=== PATIENT | female | born 1930 | race Caucasian/White ===

== ENCOUNTER 2016-04-18 19:12 | Inpatient (IN) | payer MEDICARE, OTHER ==
[~2016-04-18] VITALS: Ht 154.9 cm; Wt 52.8 kg
[~2016-04-18 19:12] MED LIST: ADV250INH IH; ALBU18HF INH; ASPI-973 PO; ATOR20TA PO; CALC500T9 PO; CHOL200025 PO; DICL75TA6 PO; FUR20 PO; FURO40TA4 PO; GUAI10LI PO; LOSA100T29 PO; MULT1TAB59 PO; OMEG-38 PO; OMEP40CA36 PO; POLY17PO6 PO; POTA10CA42 PO; VIT1CAPS8 PO
[2016-04-18] MEDS ORDERED: 0.9% Sodium Chloride 1,000 ML IV ONE (19:29)
--- NOTE | 2016-04-18 19:29 | ED.REPORT ---
HPI-Abd Pain F 40 and Over Date of Service Apr 18, 2016 ED Provider: Kyle Davis Patient is an 85 year old female who presents to the ED via EMS complaining of abdominal pain onset 2 days ago. Associated symptoms include dark vomit today. She denies diarrhea, fever, or any other symptoms. Patient is FULL CODE Nursing Notes Stated Complaint: ABDOMINAL PAIN,VOMITING Chief Complaint: Female Abdominal Pain Nursing Notes Reviewed: Yes Allergies: Coded Allergies: No Known Drug Allergies (Verified Allergy, Unknown, 08/03/15) Scheduled Aspirin (Aspirin) 81 Mg Tablet 81 MG PO DAILY Atorvastatin (Lipitor) 20 Mg Tablet 20 MG PO DAILY Cholecalciferol (Vitamin D3) (Vitamin D3) 2,000 Unit Tablet 4,000 UNIT PO DAILY Diclofenac ER (Diclofenac ER) 75 Mg Tablet 75 MG PO BID Fluticasone/Salmeterol (Advair 250-50 Diskus) 60 Puff/Inh Disk 1 PUFF IH BID Furosemide (Furosemide) 40 Mg Tablet 40 MG PO DAILYWM Furosemide (Furosemide) 20 Mg Tab 20 MG PO at lunch Losartan Potassium (Losartan Potassium) 100 Mg Tablet 150 MG PO DAILY Multivitamin/Iron/Folic Acid (Cerovite Advanced Form Tab) 1 Each Tablet 1 EACH PO DAILY [place]-3/Dha/Epa/Fish Oil (Fish Oil 1,000 mg Softgel) 1 Each Capsule 1 EACH PO BID Omeprazole (Omeprazole) 40 Mg Capsule.dr 40 MG PO DAILY Polyethylene Glycol 3350 (Miralax) 17 Gm Powd.pack 17 GM PO DAILY Potassium Chloride (Potassium Chloride) 10 Meq Capsule.er 10 MEQ PO DAILY TAKE WITH FOOD Vit C/Vit E/Lutein/Min/[place]-3 (Ocuvite Softgel) 1 Each Capsule 1 EACH PO DAILY Scheduled PRN Albuterol Sulfate (Ventolin HFA Inhaler) 200 Puff/18 Gm Inhaler 1 PUFF INH Q4 PRN PRN For Wheezing Calcium Carbonate (Tums) 500 Mg Tab.chew 1,000 MG PO BID PRN PRN For Dyspepsia or Heartburn Guaifenesin/Codeine Phosphate (Guaifenesin-Codeine Syrup) 10 Ml Liquid 10 ML PO Q4H PRN PRN For Pain General Time Seen by MD: 19:28 Chief Complaint Abdominal pain Hx Obtained From: Patient, EMS Arrived By: Ambulance Sudden in Onset?: Yes Onset Occurred: 2 days ago Symptom Duration: Since onset Past Medical History Past Medical History Arthritis Reports: Asthma, Hypertension Past Surgical History Ovarian cyst removal abdominoplasty Reports: Cataract surgery Smoking History Former Smoker Social History pt lives in an assisted living facility in [place]. pt is FULL CODE Ambulatory Status Independent Review of Systems Constitutional: Denies: Fever GI: Reports: Abdominal pain, Vomiting (Dark), Denies: Diarrhea Complete sys rev & neg: except as marked. Physical Exam Vital Signs Vital Signs (First) Date Time Temp Pulse Resp B/P Pulse Ox O2 Delivery O2 Flow Rate FiO2 04/18/16 19:32 36.4 112 18 120/69 93 Room Air 04/18/16 21:47 2 Initial VS: Reviewed Head / Eyes: Atraumatic, Normocephalic Skin: Warm, Dry Neurologic: Alert, Oriented, Nonfocal Psychiatric: Mood/affect normal, Behavior normal, Normal thought content General/Constitutional: Awake, Alert, No acute distress, Well developed Respiratory / Chest: Atraumatic, Breath sounds NL, Breath sounds = bilat, No respiratory distress Cardiovascular: Heart rate NL, Regular rhythm Heart Sounds / Murmur: Positive: Systolic murmur present.. (III/) 3/6 systolic murmur on L sternal border Abdomen: BS normoactive L and central abdominal tenderness. Back: Atraumatic Interpretation & Diagnostics Lab Results Interpretation Result Diagram: 04/18/16195304/18/[id number] Test 04/18/16 19:54 White Blood Count 12.1th/mm3 (3.8-10.1) Red Blood Count 4.40mil/mm3 (3.90-5.20) Hemoglobin 12.9g/dL (12.0-15.6) Hematocrit 39.7% (35.0-46.0) Mean Corpuscular Volume 90.2fL (81-100) Mean Corpuscular Hemoglobin 29.3pg (27.0-35.0) Mean Corpuscular Hemoglobin Concent 32.5% (32.0-37.0) Red Cell Distribution Width 15.5% (12.3-15.4) Platelet Count 310bil/L (150-400) Neutrophils (%) (Auto) 82.2% (40-74) Lymphocytes (%) (Auto) 11.9% (14-46) Monocytes (%) (Auto) 5.5% (4-12) Eosinophils (%) (Auto) 0.1% (0-5) Basophils (%) (Auto) 0.2% (0-3) Sodium Level 140mEq/L (134-144) Potassium Level 4.2mEq/L (3.5-5.2) Chloride Level 95mEq/L (97-108) Carbon Dioxide Level 30mmol/L (18-29) Blood Urea Nitrogen 44mg/dL (8-27) Creatinine 1.06mg/dL (0.57-1.00) Estimat Glomerular Filtration Rate 70mL/min (>59) Glucose Level 188mg/dL (60-99) Calcium Level 10.0mg/dL (8.5-10.1) Magnesium Level 1.8mg/dL (1.6-2.6) Total Bilirubin 0.5mg/dL (0.0-1.2) Aspartate Amino Transf (AST/SGOT) 20U/L (0-50) Alanine Aminotransferase (ALT/SGPT) 14U/L (0-32) Alkaline Phosphatase 68U/L (25-165) Total Protein 7.3g/dL (6.4-8.4) Albumin 3.8g/dL (3.4-5.0) Lipase 13U/L (13-60) Hold [place] Top Tube Received (Received) CT Abd / Pelvis Interpretation IMPRESSION: 1. Gastric volvulus as described above. The extent of distal gastric dilatation is increased when compared with the prior study dated 09/07/15. 2. Findings most consistent with small bowel obstruction with transition in the midportion of the jejunum located in the left lower quadrant as described above. Although no focal mass lesion is visualized to explain obstruction, diffuse mucosal thickening is present within the transition point. This may be associated with neoplasm, ischemia, or inflammation. These findings were discussed with Dr. Del Real, resident physician, at 9:20 PM on 04/18/16. 3. Increase in the size of the mesenteric mass when compared with the study dated 09/07/15. Dictated by: Alice Washington M.D. on 04/18/2016 at 21:23 Approved by: Alice Washington M.D. on 04/18/2016 at 21:23 Study type: Abdominal CT IV contrast Interpretation / Wet Read by: Interpret - Radiologist Re-Eval/Medical Decision Med Decision/Clinical Course Previously known gastric abnormality, pain and tenderness in lower abdomen. Imaging shows SBO. Pt appears to be tolerating well, will admit for NPO and IV fluids. Re-Evaluation/Progress : Time of Eval: 21:24 )( Re-Eval Abdomen: Tenderness Re-Evaluation/Progress Note: Rechecked patient and discussed imaging results. Discussed need for admission. Patient reports she has had similar symptoms previously. She is not passing gas normally. Her last BM was this afternoon. Consultation #1: Referral / Consult Name: Daquan Cuenca MD Consulted With: Surgeon Call Returned at: 21:29 Note: Discussed patient's case. Agrees to consult. Consultation #2: Referral / Consult Name: Stevie Velasquez MD Consulted With: Hospitalist Call Returned at: 21:50 Test Borer Helper: Will see patient, Agrees with eval, Agrees with plan, Accepts admit Note: Discussed patient's case accepts admit Counseled Regarding: Diagnosis, Lab results, Need for admission Discharge & Departure Primary Impression: Small bowel obstruction Disposition: ADMITTED TO HOSPITAL Referrals: Fay Botello MD (PCP) Scribe Attestation Portions of this note were transcribed by Jeanine Chiu. I, Dr. Davis personally performed the history, physical exam and medical decision-making; I reviewed and confirmed the accuracy of the information in the transcribed note. Signed by: Jeanine Chiu 04/18/16, [id number] copies to: Fay Botello MD, Donald L MD Apr 18, 2016 19:29 JEANINE CHIU Apr 18, 2016 19:35
[2016-04-18] MEDS ORDERED: Ondansetron 2 mg/mL 2 mL Inj IVPUSH PRN (19:30)
[2016-04-18 19:32] VITALS: BP 120/69; PULSE 112; RESP 18; O2SAT 93
[2016-04-18 20:02] LABS: BASOPHILS % (AUTO) 0.2 % (0-3); EOSINOPHILS % (AUTO) 0.1 % (0-5); MONOCYTES % (AUTO) 5.5 % (4-12); Mean Corpuscular Hemoglobin 29.3 pg (27.0-35.0); Mean Corpuscular Volume 90.2 fL (81-100); NEUTROPHILS % (AUTO) 82.2 % (40-74); Platelet Count 310 bil/L (150-400)
[2016-04-18] MEDS: HYDROmorphone 0.5 mg/0.5 mL iSecure Syringe IVPUSH PRN ×2 (20:03→23:32)
[2016-04-18 20:35] LABS: Magnesium 1.8 mg/dL (1.6-2.6)
--- NOTE | 2016-04-18 21:25 | DRSVH ---
PROCEDURE: CT ABDOMEN AND PELVIS WITH CONTRAST ([id number]) INDICATIONS: lower abd pain L>R TECHNIQUE: After the administration of intravenous contrast, 5 mm thick sections acquired from the diaphragm to the symphysis. 5 mm coronal and sagittal reformats were acquired. For radiation dose reduction, the following was used: automated exposure control, adjustment of mA and/or kV according to patient jyotsna baeza. COMPARISON: [facility], CT, CT ABD PELVIS W CON, 09/07/2015, 10:50. FINDINGS: Image quality: Excellent. 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 This finding is similar to the study dated 09/07/15. However, the stomach is more distended and filled with fluid and gas than on the prior study. No pleural effusion or pneumoth orax. Solid organs: Liver and spleen are normal in size and enhancement. Gallbladder is unremarkable. Bi liary system is non dilated. Pancreas enhances normally. No adrenal nodules. Kidneys demonstrate n ormal size and enhancement, without hydronephrosis. Peritoneum and bowel: There is moderate dilatation of the duodenum. There is marked dilatation of the jejunum. Solid appearing stool is present within this portion of the small bowel. A focal transition point is present within the mid small bowel in the left lower quadrant, likely within the distal jej unum. There is circumferential thickening of the mucosa in this region. The downstream terminal ileum is decompressed. The appendix is not visualized; however there is no discrete right lower quadrant f luid or fat stranding to suggest acute appendicitis. The colon is decompressed. There are scattered c olonic diverticula. No mucosal thickening or pericolonic fat stranding to suggest acute diverticuliti s. Nodes and vessels: Mesenteric mass is increased in size when compared with the study dated 09/07/15 an d now measures 4.9 x 2.4 cm in the coronal plane (previously measured 3.5 x 1.9 cm. Aorta and inferi or vena cava are normal in size. There are scattered atheromatous calcifications throughout the aort a and iliac arteries bilaterally. Miscellaneous: No ventral hernias. PELVIS: Genitourinary: Bladder wall thickness is normal. Miscellaneous: No inguinal adenopathy. There is a small fat-containing left inguinal hernia. Bones: Severe bony erosion and collapse of the femoral heads is present bilaterally unchanged from th e prior study. Severe wedge compression deformity at L3 is unchanged when compared with the prior bobby dy. Severe degenerative changes are present throughout the lumbar spine. No new wedge compression def ormities. IMPRESSION: 1. Gastric volvulus as described above. The extent of distal gastric dilatation is increased when com pared with the prior study dated 09/07/15. 2. Findings most consistent with small bowel obstruction with transition in the midportion of the jej unum located in the left lower quadrant as described above. Although no focal mass lesion is visualiz ed to explain obstruction, diffuse mucosal thickening is present within the transition point. This ma y be associated with neoplasm, ischemia, or inflammation. These findings were discussed with Dr. Del Real, resident physician, at 9:20 PM on 04/18/16. 3. Increase in the size of the mesenteric mass when compared with the study dated 09/07/15. Dictated by: Alice Washington M.D. on 04/18/2016 at 21:23 Approved by: Alice Washington M.D. on 04/18/2016 at 21:23
[2016-04-18 21:47] VITALS: BP 117/67; PULSE 100; RESP 14; O2SAT 93
[2016-04-18] MEDS ORDERED: 0.9% Sodium Chloride 1,000 ML IV SCH (22:04)
[2016-04-18 22:16] VITALS: BP 117/67; PULSE 100; RESP 14; O2SAT 93
[2016-04-18 22:52] VITALS: BP 143/83; PULSE 96; RESP 18; O2SAT 99
[2016-04-18 23:28] LABS: APPEARANCE,URINE CLEAR (CLEAR,HAZY); COLOR,URINE STRAW (YELLOW); OCCULT BLOOD,URINE NEGATIVE (NEGATIVE); UROBILINOGEN,URINE NORMAL (NORMAL)
[2016-04-19] VITALS (7 sets, daily range): BP systolic 113–154; BP diastolic 68–88; PULSE 82–91; RESP 18–20; O2SAT 93–99
[2016-04-19] MEDS: 0.9% Sodium Chloride 1,000 ML IV SCH ×3 (01:34→22:50)
[2016-04-19] MEDS ORDERED: Alum-Mag Hydrox-Simeth 30 mL Suspension PO PRN (01:35)
[2016-04-19] MEDS ORDERED: Polyethylene Glycol (PEG) 17 Gm Powder PO PRN (01:35)
[2016-04-19] MEDS ORDERED: Albuterol 2.5 mg/3 mL Inhalation Solution NEB PRN (01:40)
[2016-04-19] MEDS ORDERED: Sucralfate 100 mg/mL 10 mL Suspension PO ONE (01:40)
--- NOTE | 2016-04-19 05:05 | PCM.HPMED ---
Subjective Date of Service Apr 19, 2016 Primary Provider: Admitting Physician: Stevie Velasquez MD Primary Care Physician: Fay Botello MD Attending Physician: Stevie Velasquez MD Chief Complaint: abdominal pain and hematemesis History of Present Illness: Patient is a 85 year old female with a pmh of asthma and hypertension that is presenting with 1-2 day history of abdominal pain and hematemesis. Patient reports that she was in her usual state of health when she suddenly developed crampy abdominal pain that occured without any inciting incident. Patient immediately felt nauseated and began to vomit a few time. At first it was vomiting food material, and eventually it became darker and it resembled coffee grounds as per the patient. Patient then realized that something was amiss and called ems. Patient then proceeded to have 2 more vomiting episodes while EMS was there. EMS recognized this as coffee ground emesis and immediately brought her to the ED. Patient while in the ED was treated with anti emetics and a has been not had any more episodes of vomiting. Patient is otherwise asymptomatic and has minimal pain as compared to before. Review of Systems: GI: Reports: Abdominal pain, Vomiting (Dark), Denies: Diarrhea Complete sys rev & neg: except as marked. Allergies Coded Allergies: No Known Drug Allergies (Verified Allergy, Unknown, 08/03/15) Home Medications Aspirin (Aspirin) 81 Mg Tablet 81 MG PO DAILY Atorvastatin (Lipitor) 20 Mg Tablet 20 MG PO DAILY Cholecalciferol (Vitamin D3) (Vitamin D3) 2,000 Unit Tablet 4,000 UNIT PO DAILY Diclofenac ER (Diclofenac ER) 75 Mg Tablet 75 MG PO BID Fluticasone/Salmeterol (Advair 250-50 Diskus) 60 Puff/Inh Disk 1 PUFF IH BID Furosemide (Furosemide) 40 Mg Tablet 40 MG PO DAILYWM Furosemide (Furosemide) 20 Mg Tab 20 MG PO at lunch Losartan Potassium (Losartan Potassium) 100 Mg Tablet 150 MG PO DAILY Multivitamin/Iron/Folic Acid (Cerovite Advanced Form Tab) 1 Each Tablet 1 EACH PO DAILY [place]-3/Dha/Epa/Fish Oil (Fish Oil 1,000 mg Softgel) 1 Each Capsule 1 EACH PO BID Omeprazole (Omeprazole) 40 Mg Capsule.dr 40 MG PO DAILY Polyethylene Glycol 3350 (Miralax) 17 Gm Powd.pack 17 GM PO DAILY Potassium Chloride (Potassium Chloride) 10 Meq Capsule.er 10 MEQ PO DAILY TAKE WITH FOOD Vit C/Vit E/Lutein/Min/[place]-3 (Ocuvite Softgel) 1 Each Capsule 1 EACH PO DAILY Albuterol Sulfate (Ventolin HFA Inhaler) 200 Puff/18 Gm Inhaler 1 PUFF INH Q4 PRN PRN For Wheezing Calcium Carbonate (Tums) 500 Mg Tab.chew 1,000 MG PO BID PRN PRN For Dyspepsia or Heartburn Guaifenesin/Codeine Phosphate (Guaifenesin-Codeine Syrup) 10 Ml Liquid 10 ML PO Q4H PRN PRN For Pain PMH Arthritis Reports: Asthma, Hypertension Surgical History Ovarian cyst removal abdominoplasty cataract surgery Family History non contributory Social History Hx Alcohol Use: No Hx Substance Use: No Hx Tobacco Use: Yes Smoking Status: Former Smoker Exam Vital Signs Vital Sign - Last Date Time Temp Pulse Resp B/P Pulse Ox O2 Delivery O2 Flow Rate FiO2 04/19/16 03:15 Supplement Oxygen 04/19/16 01:02 36.5 88 18 135/88 98 2.00 Intake and Output 04/18/16 04/18/16 04/19/16 Cumulative From/Thru 15:00 23:00 07:00 04/18/16 19:32 - 04/18/16 22:52 Intake Total 1000 ml 1000 ml Balance 1000 ml 1000 ml Intake IV Total 1000 ml 1000 ml Exam General/Constitutional: Awake, Alert, No acute distress, Well developed Head / Eyes: Atraumatic, Normocephalic Skin: Warm, Dry Neurologic: Alert, Oriented, Nonfocal Psychiatric: Mood/affect normal, Behavior normal, Normal thought content Respiratory / Chest: Atraumatic, Breath sounds NL, Breath sounds = bilat, No respiratory distress Cardiovascular: Heart rate NL, Regular rhythm Heart Sounds / Murmur: Positive: Systolic murmur present.. (III/) 3/6 systolic murmur on L sternal border Abdomen: BS normoactive L and central abdominal tenderness. Back: Atraumatic Lab and Diagnostics Result Diagram: 04/18/16195304/18/[id number] X-Rays, CTs and MRIs CT Abd / Pelvis Interpretation IMPRESSION: 1. Gastric volvulus as described above. The extent of distal gastric dilatation is increased when compared with the prior study dated 09/07/15. 2. Findings most consistent with small bowel obstruction with transition in the midportion of the jejunum located in the left lower quadrant as described above. Although no focal mass lesion is visualized to explain obstruction, diffuse mucosal thickening is present within the transition point. This may be associated with neoplasm, ischemia, or inflammation. These findings were discussed with Dr. Del Real, resident physician, at 9:20 PM on 04/18/16. 3. Increase in the size of the mesenteric mass when compared with the study dated 09/07/15. Assessment & Plan Patient is a 85 year old female presenting with cramping abdominal pain and hematemesis that was found to have increased size of a gastric volvulus and small bowel obstruction. Patient is currently stable and has not had any repeat episodes of vomiting since she has been admitted. Hematemesis - Pt has had a one day of hematemesis with approximately 6 episodes as a whole - Pts hemoglobin was seen to be 12.9 - will start protonix iv 40 mg bid - pt will require a GI consult, pt was scoped approximately 2 years ago but it was a limited exam due to being unable to get past the volvulus - will continue to obtain cbcs q8 hours - if stable will switch to cbcs daily Small bowel obstruction - Patient was seen to have both gastric volvulus and small bowel obstruction - Patient has a known history of having gastric volvulus in the past - Currently patient is pain free, nausea free, and has not had any episodes of vomiting since coming to the floor - Will hold off on NG tube suction and provide bowel rest via npo for the time being - NS @ 100 ml.hour for resuscitation - will change to Dextrose5% with 1/2 ns once 2 liters are reached Asthma - Pt has an established history of asthma - will c/w albuterol and advair for now Hypertension - Pt has an established history of hypertension - will c/w lasix 40 mg daily, and losartan 100 mg daily DVT ppx via scds GI ppx via protonix drip Pt is from assisted living in [place] and will return when hosp course is over VTE Mechanical Devices: Intermittant Pneumatic CD Stevie Velasquez MD Apr 19, 2016 05:05
--- NOTE | 2016-04-19 05:30 | NUR ---
Admit to [facility] Received phone from ED RN, Nam [phone], pt arrived to unit at 2256 via gurney, able to ambulate 2PA to bed, a/o x4, able to make needs known,vitals taken stable, noted IV 20g on RAC, patent, 2 RN skin check done with Wendy Elizabeth RN, noted, no nausea/vomiting since admit to floor, oriented pt to room and call light, hourly rounding done, call light in reach.
[2016-04-19] MEDS: Pantoprazole 4 mg/mL 10 mL Inj IVPUSH SCH ×2 (08:26→16:39)
[2016-04-19 09:29] LABS: BASOPHILS % (AUTO) 0.3 % (0-3); EOSINOPHILS % (AUTO) 0.6 % (0-5); MONOCYTES % (AUTO) 6.1 % (4-12); Mean Corpuscular Hemoglobin 29.3 pg (27.0-35.0); Mean Corpuscular Volume 93.6 fL (81-100); NEUTROPHILS % (AUTO) 71.9 % (40-74); Platelet Count 248 bil/L (150-400)
[2016-04-19 09:52] LABS: Magnesium 1.8 mg/dL (1.6-2.6)
--- NOTE | 2016-04-19 11:21 | NUR ---
Code stroke called at 1045 while pt ambulating in [place]. Experienced weakness and unable to continue ambulating as well as slurred speech present. Weak hand chummer. Assessed at bedside by stroke team. BS 130. BP 165/88, 118 tacyhcardia per teletypesetter monitor, 92% on 2L NC. Neurologically intact, per stroke team. No CT ordered. Pt stable in bed. L AC IV restarted. Addendum: 04/19/16 at 1124 by JUAN MOBLEY RN wrong pt disregard
[2016-04-19] MEDS: Fluticasone-Salmererol 250-50 Inhaler INHALATION SCH ×2 (11:42→20:23)
--- NOTE | 2016-04-19 12:15 | NUR ---
NG NG placed at bedside at 1215. Pt tolerated well with no respiratory compromise. Secured in place at 49cm. Safety pinned to gown. XR notified to come for portable to assess placement. Pt continues to deny nausea. Has intermittent but mild abdominal discomfort without need for pain meds, per pt. OOB x2 to bathroom so far today. Son Rory at bedside and reason for procedure explained. Per Dr. Tarango this am, to hold po meds until NG placed and then can give with NG clamped and small sips of water. Per Dr. Tarango this am, pt may have sips of water and ice chips after NG is in place. Per hospitalist at rounds at 1030, to continue NS at 100ml/hr.
--- NOTE | 2016-04-19 13:21 | CONS ---
[address] [address] CONSULTATION REPORT PATIENT: DARNELL ARTIS I : 1930 MR#: [id number] ADMIT: 04/18/2016 JOB ID: [id number] DATE OF SERVICE: 04/19/2016 CHIEF COMPLAINT: The hospitalist service has asked for a General Surgery consultation on this 85-year-old female with a small bowel obstruction. HISTORY OF PRESENT ILLNESS: The patient has a one to two day history of abdominal pain and emesis with decreased bowel movements. Some of her emesis has been coffee-grounds, though she has also had coffee-ground emesis in the past and been worked up for a known paraesophageal hernia. 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 Zenaida Mathur. The patient also has a previous history of ruptured ovarian cyst with partial oophorectomy in her youth. Surgical history also includes abdominoplasty. PAST MEDICAL HISTORY: Arthritis, asthma, hypertension. MEDICATIONS: Per med list include losartan, furosemide, and albuterol. ALLERGIES: No known drug allergies. SOCIAL HISTORY: Ex-smoker, currently does not smoke. Negative daily alcohol. FAMILY HISTORY: Noncontributory. REVIEW OF SYSTEMS: Noncontributory. PHYSICAL EXAMINATION: Vital signs recorded in the chart. They are all within normal limits. She is comfortable, with oxygen but no nasogastric tube. Lungs are clear. Heart sounds are regular. Her abdomen is mildly distended, with high-pitched bowel tones. There are no abdominal wall hernias to my examination. LABORATORY DATA: White count last night was 12.1, hematocrit 39. Repeat labs pending this morning. Electrolytes were more or less normal, except for mild elevation of her carbon dioxide and her creatinine of 1.06. Lipase and LFTs were normal last night. Her albumin was 3.8. IMAGING: She had a CT scan of the abdomen and I have reviewed this, both the report and the films. These demonstrate a stable paraesophageal hernia and what appears to be a small bowel obstruction with transition either in the left lower quadrant per the report or down at the pelvic brim per my evaluation. Mesenteric mass has increased in size slightly over the past several months. IMPRESSION AND PLAN: 1. Small-bowel obstruction. 2. Stable paraesophageal hernia. She has seen Dr. Zenaida Mathur in the past and discussed this and there was decision not fix this as the morbidity of surgery was outweighed by the benefits. 3. My recommendation to place a nasogastric tube in the hopes of nonoperative management of this small-bowel obstruction. The small-bowel obstruction may be related to her previous abdominal surgery or to her sclerosing mesenteric process. Either way, we should treat it the same, with conservative measures, and see whether she gets better with a nasogastric tube in the next day or two. If not, I would recommend a laparoscopic approach to her small bowel obstruction with lysis of adhesions. The question as to whether we would do a concurrent repair of her paraesophageal hernia is not a straightforward decision and I will discuss this with her if we need to go to the OR for her bowel obstruction.
--- NOTE | 2016-04-19 14:16 | DRSVH ---
PROCEDURE: X-RAY CHEST ONE VIEW, PORTABLE ([id number]) INDICATIONS: NG PLACEMENT TECHNIQUE: One view of the chest was acquired. COMPARISON: [facility], CT, CT ABD PELVIS W CON, 04/18/2016, 20:45. Bárbara Vallejo, XR CHEST 2VW, 12/29/2015, 15:49. FINDINGS: Surgical changes and devices: Nasogastric tube is present with distal tip overlying the left hemithor ax. There is a second line identified overlying the right hemithorax and abdomen which is external to the patient. Lungs and pleura: No pleural effusions or pneumothorax. Lungs are clear. Mediastinum: Mediastinal contours appear normal. Large hiatal hernia is present. Heart size is dominga l. Bones and chest wall: No suspicious bony lesions. Overlying soft tissues appear unremarkable. IMPRESSION: NG tube as placed above. It is felt to likely be within the large hiatal hernia and forwa rd advancement is recommended. The above findings were discussed with Jabier Ross on 04/19/16 at 2 PM. Dictated by: Noa Conteh M.D. on 04/19/2016 at 14:15 Approved by: Noa Conteh M.D. on 04/19/2016 at 14:15
--- NOTE | 2016-04-19 14:29 | NUR ---
NG RN notified at 1415 that NG needs to be advanced further d/t pt's large hiatal hernia. NG advanced to 59 cm and taped and pinned. Pt tolerated well. Dr. Tarnago at bedside. Updated on NG status.
--- NOTE | 2016-04-19 15:38 | DRSVH ---
PROCEDURE: X-RAY CHEST ONE VIEW, PORTABLE ([id number]) INDICATIONS: VERIFY NG TUBE REPOSITION TECHNIQUE: One view of the chest was acquired. COMPARISON: [facility], CR, XR CHEST 1VW (PORTABLE), 04/19/2016, 12:27. FINDINGS: Surgical changes and devices: NG tube is coiled within a large retrocardiac hiatal hernia. Lungs and pleura: No pleural effusions or pneumothorax. Lungs are clear. Mediastinum: Mediastinal contours appear normal. Heart size is enlarged. Bones and chest wall: No suspicious bony lesions. Overlying soft tissues appear unremarkable. IMPRESSION: NG tube coiled within a large retro-cardiac hiatal hernia. Dictated by: Kerry Mcclain MD, PhD on 04/19/2016 at 15:36 Approved by: Kerry Mcclain MD, PhD on 04/19/2016 at 15:36
--- NOTE | 2016-04-19 16:05 | NUR ---
NG [address] Tarango, requested that RN place pt on suction to see what was able to be removed from pt's NG. RN placed pt on suction. Only clear small amount of liquid removed. Notified Dr. Tarango. Dr. Tarango requests that NG be advanced to within 6 inches from hub, secured, and LIWS started if resistance not met during advancement. tea blender NG to 74cm as length of NG 80cm. LIWS started. Dr. Tarango to come by unit and see pt later this shift.
[2016-04-19] MEDS ORDERED: ACET325T51 PO (16:31)
[2016-04-19] MEDS ORDERED: DICL75TA6 PO (16:31)
[2016-04-19] MEDS ORDERED: OXYC-474 PO (16:31)
[2016-04-19] MEDS ORDERED: ALBU18HF INH (16:31)
[2016-04-19] MEDS ORDERED: CHOL200047 PO (16:31)
--- NOTE | 2016-04-19 17:23 | NUR ---
NG 1710 RN discussed NG with Dr. Tarango by phone. Notified that very little output has been removed and ouput is clear (less than 100ml). Notified MD that earlier advancement as requested did not have any resistance. MD asks that NG continue at low intermittent suction at this time and will repeat films in am. Notified that pt was complaining of abdominal pain this evening and IV meds given. Per Dr. Tarango, if pain worsens overnight RN to notify MD for bedside assessment. Will monitor and pass along to vba developer. Pt reports that she continues to pass flatus. Addendum: 04/19/16 at 1729 by JUAN MOBLEY RN Dr. Tarango also requested that PO meds be held and hospitalist order any necessary meds IV. Hospitalist notified via cook page.
[2016-04-19] MEDS ORDERED: hydrALAZINE 20 mg/mL Inj IV PRN (17:50)
--- NOTE | 2016-04-19 18:16 | PCM.PNMED ---
Subjective Date of Service Apr 19, 2016 Subjective Feeling a bit better today, abdominal pain has decreased. Nauseated with no vomiting. No fevers chills. She is still passing gas. Exam Vital Signs Vital Sign - Last Date Time Temp Pulse Resp B/P Pulse Ox O2 Delivery O2 Flow Rate FiO2 04/19/16 17:30 Supplement Oxygen 04/19/16 14:00 36.8 82 18 138/82 99 2.00 Intake and Output 04/18/16 04/18/16 04/19/16 Cumulative From/Thru 15:00 23:00 07:00 04/18/16 19:32 - 04/18/16 22:52 Intake Total 1000 ml 1000 ml Balance 1000 ml 1000 ml Intake IV Total 1000 ml 1000 ml Exam General: Alert, Oriented X3, NAD Head: Normocephalic, atraumatic Eyes: BRANT, EOMI, no scleral Icterus Chest: clear to auscultation B/L, no wheezing rales or rhonchi Heart: Regular rate and rhythm. Normal S1, S2, no murmurs noted Abdomen: soft, mild generalized tenderness to palpation. Bowel sounds are slightly hypoactive. No guarding or rebound. Extremities: no cyanosis, clubbing or edema. IVs and Medications Medications Reviewed: Medications were reviewed in detail Lab and Diagnostics Result Diagram: 04/19/16 0850 04/19/16 0850 X-Rays, CTs and MRIs CT Abd / Pelvis Interpretation IMPRESSION: 1. Gastric volvulus as described above. The extent of distal gastric dilatation is increased when compared with the prior study dated 09/07/15. 2. Findings most consistent with small bowel obstruction with transition in the midportion of the jejunum located in the left lower quadrant as described above. Although no focal mass lesion is visualized to explain obstruction, diffuse mucosal thickening is present within the transition point. This may be associated with neoplasm, ischemia, or inflammation. These findings were discussed with Dr. Del Real, resident physician, at 9:20 PM on 04/18/16. 3. Increase in the size of the mesenteric mass when compared with the study dated 09/07/15. Assessment & Plan Patient is a 85 year old female presenting with cramping abdominal pain and hematemesis that was found to have increased size of a gastric volvulus and small bowel obstruction. 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 Plans for NG tube decompression. - NS @ 100 ml hour Asthma - Pt has an established history of asthma - will c/w albuterol and advair for now Hypertension - Pt has an established history of hypertension - Hydralazine when necessary for hypertension while she is nothing by mouth We will hold her other by mouth medications CODE STATUS: Full code DVT prophylaxis: Contraindicated with hematemesis Disposition: Pt is from assisted living in [place] and will return when hosp course is over VTE Mechanical Devices: Intermittant Pneumatic CD Raul Lemus DO Apr 19, 2016 18:16
[2016-04-20 03:31] VITALS: BP 153/76; PULSE 94; RESP 17; O2SAT 93
--- NOTE | 2016-04-20 05:17 | NUR ---
NG/Pain/Nausea NG continues w/minimal output but patent,no nausea throughout night but medicated for pain x1 states is "intermittent comes and goes"
[2016-04-20 06:55] LABS: Mean Corpuscular Hemoglobin 29.5 pg (27.0-35.0); Mean Corpuscular Volume 95.3 fL (81-100)
[2016-04-20 07:36] VITALS: PULSE 94; RESP 17; O2SAT 94
[2016-04-20 07:56] VITALS: BP 158/78; PULSE 88; RESP 16; O2SAT 94
--- NOTE | 2016-04-20 08:53 | NUR ---
Social Work: Initial assessment attempted Data: ALMOND BLANCHER attempted to meet with pt for initial assessment but pt is out of the room for medical testing, per RN. ALMOND BLANCHER will attempt at a later time. JAMMIE Wilkinson
[2016-04-20] MEDS: Pantoprazole 4 mg/mL 10 mL Inj IVPUSH SCH ×2 (09:08→15:17)
[2016-04-20] MEDS: Fluticasone-Salmererol 250-50 Inhaler INHALATION SCH ×2 (09:08→20:57)
[2016-04-20] MEDS: 0.9% Sodium Chloride 1,000 ML IV SCH ×2 (09:09→19:26)
--- NOTE | 2016-04-20 09:54 | DRSVH ---
PROCEDURE: X-RAY ACUTE ABDOMINAL SERIES ([id number]) INDICATIONS: f/u sbo TECHNIQUE: One view chest and two views of the abdomen were acquired. COMPARISON: None. FINDINGS: Surgical changes and devices: Nasogastric tube is looped within a large hiatal hernia. Chest: Lungs are clear. Heart size is normal. No pleural effusions. No pneumoperitoneum. Abdomen: Bowel gas pattern shows a small amount of residual contrast material as well as air within the nondistended colon. Small bowel distention is no longer apparent. No suspicious calcifications. Visualized solid organ contours appear normal. Bones: Severe degenerative changes/osteonecrosis of the hips and advanced degenerative changes in the mid lumbar spine at L3-4. IMPRESSION: 1. Apparent resolution of small bowel obstruction. 2. Nasogastric tube is looped within a large hiatal hernia. 3. Advanced degenerative joint disease. Dictated by: Elvin Castro M.D. on 04/20/2016 at 9:52 Approved by: Elvin Castro M.D. on 04/20/2016 at 9:52
--- NOTE | 2016-04-20 11:02 | PCM.PNSURG ---
Subjective Date of Service: Apr 20, 2016 Visit Information: Reason for Visit Small Bowel Obstruction Surgery/Surgery Date Post-Op Day # Date of Admission: Apr 18, 2016 at 22:11 Hospital Day #3 Subjective: Passing flatus but has not had a bowel movement. Continues to have intermittent lower abdominal pain that comes in waves. Denies nausea or vomiting. Postop General: Other (as above) Gastrointestinal: No N/V, Passing Flatus Pain Management: IV Push Objective Vital Sign- Last 8 Hours Date Time Temp Pulse Resp B/P Pulse Ox O2 Delivery O2 Flow Rate FiO2 04/20/16 07:56 36.9 88 16 158/78 94 Room Air 04/20/16 07:36 94 17 94 04/20/16 03:31 36.4 94 17 153/76 93 Room Air Intake and Output- Last 8 Hour 04/20/16 Cumulative From/Thru 07:00 04/18/16 19:32 - 04/20/16 06:19 Intake Total 2206 ml 3206 ml Output Total 1200 ml 2000 ml Balance 1006 ml 1206 ml Intake Oral 0 ml 0 ml IV Total 2206 ml 3206 ml Output Urine Total 500 ml 1300 ml Gastric Drainage Total 700 ml 700 ml # Bowel Movements 0 0 General: Alert, Cooperative, No Acute Distress Lungs: Clear to Auscultation Heart: Regular Rate/Rhythm, Murmur (grade 2/6 systolic murmur heard best at the base) Abdomen: Soft, Distended (moderately distended), Tympanic (in the right upper and lower quadrants), Other (tender to palpation and percussion) Extremities: Thigh&Calf Soft/Nontender Neuro: Normal Speech Result Diagram: 04/20/16 0607 04/20/16 0607 Assessment & Plan Impression Primary diagnosis: Small bowel obstruction. HD #3 with radiographic resolution of obstructive symptoms yet the patient is still distended and tympanitic with mild abdominal pain. Other diagnoses: 1. Paraesophageal hernia 2. Arthritis 3. Asthma 4. Hypertension 5. Former cigarette smoker Problems: Plan 1. Continue NG to suction 2. Repeat x-ray in the morning Pain Management: Intermittent IV analgesic VTE Prophylaxis: SCDs Resuscitation Status: CPR: Attempt Resuscitation Rex Campbell PA-C Apr 20, 2016 11:02
--- NOTE | 2016-04-20 11:56 | NUR ---
NG tube/diet advanced Pt had abdominal x-rays completed. Returned to the floor and her NG tube was clamped, as per orders. Pt was started on a clear liquid diet. Will monitor. Addendum: 04/20/16 at 1309 by JESUSITA BEARD RN After having around 460cc of clear liquids the patient became nauseous and complained of intermittent, sharp abdominal pain "01/22". She was given IV zofran and 1mg of IV morphine. Upon reassessment the patient reported that the IV morphine had relieved the sharp abdominal pain she was having and now she was experiencing just a dull ache. Addendum: 04/20/16 at 1903 by JESUSITA BEARD RN NG tube back on suction, low intermittent. Total output for this shift, 500cc.
[2016-04-20] MEDS: Ondansetron 2 mg/mL 2 mL Inj IVPUSH PRN ×2 (12:34→19:36)
--- NOTE | 2016-04-20 16:53 | NUR ---
Faxed clinicals to [facility], patient comes from there. [phone]
[2016-04-20 17:29] VITALS: BP 133/66; PULSE 90; RESP 16; O2SAT 92
--- NOTE | 2016-04-20 17:51 | NUR ---
Social Work: Screen D: Per EMR review, pt is an 85 year old female admitted for Small Bowel Obstruction. pt is Medicare with [employer] Out of [employer]. PCP is Fay Botello MD. NOK is Geovani Rory Tello, . Readmit score is moderate, 3/8. FIRESETTER was unable to meet with pt at bedside to complete Initial Assessment. Pt lives at [facility] and is I with most care there. FIRESETTER spoke with pt's gericare aide teacher, Sandy, at [facility]. She is requesting clinicals and states the pt will require a bedside assessment prior to return. At this time, pt is not medically stable for discharge back to [facility]. FIRESETTER informed Sandy of this as she reviews the clinical information. A: Pt who is I with ambulation. P: Evolving; Anticipate discharge back to [facility] pending bedside assessment [facility] SNF if pt's ambulatory status digital forensic analyst needs drastically changes. FIRESETTER to continue to follow. JAMMIE Mendez
--- NOTE | 2016-04-20 19:30 | NUR ---
NG/Diet patient became nauseated w/pain after broth per report placed back on NGT to LIWS, also NPO again Addendum: 04/21/16 at 9594 by NICOLE MAURO RN Medicated for pain nausea last sofi no further incidence since
--- NOTE | 2016-04-20 20:40 | PCM.PNMED ---
Subjective Date of Service Apr 20, 2016 Subjective She was feeling much better earlier today. Her abdominal x-ray showed that she had a resolution of her bowel obstruction. Her NG tube was clamped and her diet advanced to clears. She immediately started experiencing some abdominal pain. Currently she is pain-free, she denies any chest pain, shortness breath, nausea vomiting Exam Vital Signs Vital Sign - Last Date Time Temp Pulse Resp B/P Pulse Ox O2 Delivery O2 Flow Rate FiO2 04/20/16 17:32 Supplement Oxygen 04/20/16 17:29 36.9 90 16 133/66 92 04/19/16 14:00 2.00 Intake and Output 04/19/16 04/19/16 04/20/16 Cumulative From/Thru 15:00 23:00 07:00 04/18/16 19:32 - 04/20/16 06:19 Intake Total 2206 ml 3206 ml Output Total 800 ml 1200 ml 2000 ml Balance -800 ml 1006 ml 1206 ml Intake Oral 0 ml 0 ml IV Total 2206 ml 3206 ml Output Urine Total 800 ml 500 ml 1300 ml Gastric Drainage Total 700 ml 700 ml # Bowel Movements 0 0 IVs and Medications Medications Reviewed: Medications were reviewed in detail Lab and Diagnostics Result Diagram: 04/20/16 0607 04/20/16 0607 X-Rays, CTs and MRIs CT Abd / Pelvis Interpretation IMPRESSION: 1. Gastric volvulus as described above. The extent of distal gastric dilatation is increased when compared with the prior study dated 09/07/15. 2. Findings most consistent with small bowel obstruction with transition in the midportion of the jejunum located in the left lower quadrant as described above. Although no focal mass lesion is visualized to explain obstruction, diffuse mucosal thickening is present within the transition point. This may be associated with neoplasm, ischemia, or inflammation. These findings were discussed with Dr. Del Real, resident physician, at 9:20 PM on 04/18/16. 3. Increase in the size of the mesenteric mass when compared with the study dated 09/07/15. Assessment & Plan Patient is a 85 year old female presenting with cramping abdominal pain and hematemesis that was found to have increased size of a gastric volvulus and small bowel obstruction. Hematemesis - Pt has had a one day of hematemesis with approximately 6 episodes as a whole - Pts hemoglobin 12.9 on admission. Slightly down, now stable. 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 Trial of clears not tolerated today. - NS @ 100 ml hour Asthma - will c/w albuterol and advair for now Hypertension - Hydralazine when necessary for hypertension while she is nothing by mouth We will hold her other by mouth medications CODE STATUS: Full code DVT prophylaxis: Contraindicated with hematemesis Disposition: Pt is from assisted living in [place] and will return when hosp course is over VTE Prophylaxis: SCDs VTE Mechanical Devices: Intermittant Pneumatic CD Resuscitation Status: CPR: Attempt Resuscitation Raul Lemus DO Apr 20, 2016 20:40
[2016-04-20 21:00] VITALS: BP 136/62; PULSE 87; RESP 20; O2SAT 92
[2016-04-20 21:02] VITALS: PULSE 92; RESP 16; O2SAT 98
[2016-04-21 00:42] VITALS: BP 143/72; PULSE 84; RESP 19; O2SAT 94
[2016-04-21 04:14] VITALS: BP 149/65; PULSE 85; RESP 16; O2SAT 94
[2016-04-21] MEDS: 0.9% Sodium Chloride 1,000 ML IV SCH ×3 (05:23→16:48)
[2016-04-21] MEDS: Pantoprazole 4 mg/mL 10 mL Inj IVPUSH SCH ×2 (08:10→16:57)
[2016-04-21 08:12] LABS: Mean Corpuscular Hemoglobin 29.5 pg (27.0-35.0); Mean Corpuscular Volume 94.4 fL (81-100)
--- NOTE | 2016-04-21 08:50 | NUR ---
EVERT signed JAMMIE Wilkinson
[2016-04-21] MEDS: Fluticasone-Salmererol 250-50 Inhaler INHALATION SCH ×2 (08:55→20:55)
[2016-04-21 09:02] VITALS: BP 143/74; PULSE 85; RESP 16; O2SAT 94
--- NOTE | 2016-04-21 09:04 | DRSVH ---
PROCEDURE: X-RAY ABDOMEN WITH ERECT AND/OR DECUBITUS VIEWS ([id number]) INDICATIONS: follow sbo TECHNIQUE: 2 views of the abdomen were acquired. COMPARISON: [facility], CR, XR ABD ACUTE SERIES 3VW, 04/20/2016, 8:27. [facility] pital, CT, CT ABD PELVIS W CON, 04/18/2016, 20:45. FINDINGS: Surgical changes and devices: Enteric tube is present and projects in the previous large hiatal herni a, with the tip seen just below the diaphragm. Bowel: No pneumoperitoneum. The bowel gas pattern is nonspecific, although slightly more conspicuou s bowel gas. No definite transition point. There is gas in the rectal vault Soft tissues: No masses; visualized solid organ contours appear normal in size. No suspicious abdom inal calcifications. Bones: No suspicious bony abnormalities. Scoliosis and diffuse discogenic changes. Severe bilateral hip joint degeneration and deformity. IMPRESSION: Nonspecific bowel gas pattern. As clinically warranted, continued surveillance with abdominal series radiographs could be performed. Grossly unchanged enteric tube. Large hiatal hernia. Dictated by: Musa Wharton M.D. on 04/21/2016 at 9:02 Approved by: Musa Wharton M.D. on 04/21/2016 at 9:02
[2016-04-21] MEDS: Ondansetron 2 mg/mL 2 mL Inj IVPUSH PRN (10:23)
--- NOTE | 2016-04-21 10:34 | PROG NOTE ---
[address] [address] PROGRESS NOTE PATIENT: DARNELL ARTIS I : 1930 MR#: [id number] ADMIT: 04/18/2016 JOB ID: [id number] DATE: 04/21/2016 SUBJECTIVE: NG tube output is essentially what she is taking in terms of sips. She continues to pass gas but has not had a bowel movement. Her x-rays yesterday were normal, her ones today show some small bowel gas but mainly large bowel gas, no air-fluid levels and no dilated small bowel. Her abdominal examination is benign. IMPRESSION AND PLAN: I think we should just take her NG tube out and advance her up to full liquids. If she tolerates these, she can return to assisted living tomorrow. She still has some mid epigastric pain that she complains of and hopefully this will resolve with the NG tube out and being allowed to eat.
--- NOTE | 2016-04-21 11:32 | NUR ---
Social Work: Initial Assessment Data: Pt is an 85 y/o female admitted for small bowel obstructions. Pt's PCP is Dr Botello, pt's insurance is Medicare with [employer] out of state supp. EMR reviewed. COMPRESSION MOLDING MACHINE TENDER met with pt at bedside, role explained. Pt states she lives at [facility]. Pt states she has no stairs, uses a wheelchair most of the time and is assisted with meals, medications, and dressing. Pt reports that she does not drive, has no history of HH or SNF, not LTC or VA benefits, and is not a caregiver for another. Pt states her son can drive her home at d/c. Assessment: pt living in assisted living. Plan: Pt will likely d/c home via POV with son when medically stable, [facility] requires an assessment before return. JAMMIE will continue to follow. JAMMIE Wilkinson Addendum: 04/21/16 at 1134 by JEFFREY PITT Amended: Links added.
[2016-04-21 11:47] VITALS: BP 150/78; PULSE 87; RESP 18; O2SAT 92
--- NOTE | 2016-04-21 14:50 | NUR ---
Respiratory Pt assessed, found supine in bed breathing RA. Sat 97%, HR 90, RR 16, BS clear bilaterally. Pt stated no SOB, no cough and no sputum. Pt aware Tx is available.
--- NOTE | 2016-04-21 14:53 | NUR ---
NUTRITION ASSESSMENT: ASSESS:85 YO female admitted with small bowel obstruction. NG removed today, with diet advancing to clear liquids. Patient has been NPO / clear liquids x 3 D. She continues to pass gas but has not had a bowel movement. Her x-rays yesterday were normal, today show some small bowel gas but mainly large bowel gas, no air-fluid levels and no dilated small bowel. Her abdominal examination is benign. Code status: full. PMHx:Arthritis, asthma, HTN. DIET:NPO / clear liquids x 3 D. LABS: Reviewed. Na 149, K+ 3.4, Glu 113, Ca 7.8. MEDICATIONS: Reviewed. Lasix. NUTRITION FOCUSED PHYSICAL ASSESSMENT: GI symptoms / stool: No stool x 3 D.Bernard: 18. Skin Integrity: No issues reported. ANTHROPOMETRICS: Current Wt: 52.8 kg BMI: 21.0 kg/m2.Admit weight: 53.64 kg. IBW: 47.7 kg (110.6% IBW) ESTIMATED NEEDS: Calories: 1320 - 1584 kcal (25 - 30 kcal / kg BW) Protein: 53 - 79 g protein (1.0 - 1.5 g / kg BW) Fluid: Approx. 1320 ml (25 ml / kg BW) NUTRITION DIAGNOSIS: 1)Inadequate oral intake related to altered GI function, as evidenced by NPO / clear liquid status x 3 D. INTERVENTION: 1) Will add Ensure Clear to trays while on clear liquid diet. MONITOR/EVALUATE: Diet advance / tolerance, PO intake, labs, GI/nutrition status. Follow up per high nutrition risk guidelines.
--- NOTE | 2016-04-21 15:35 | NUR ---
Diet Seen by Dr. Tarango this am. NGT pulled out, diet to advance to full liquid as tolerated. Sips and clears tolerated with no complaints of nausea. For possible discharge tomorrow. Will continue to monitor.
[2016-04-21 16:37] VITALS: BP 126/67; PULSE 88; RESP 18; O2SAT 92
[2016-04-21 19:45] VITALS: BP 111/59; PULSE 55; RESP 18; O2SAT 97
--- NOTE | 2016-04-21 20:11 | PCM.PNMED ---
Subjective Date of Service Apr 21, 2016 Subjective Doing better today, her NG tube has been removed and her diet advanced which she has tolerated this time. Abdominal pain is minimal. No fevers chills, chest pain or shortness of breath. Exam Vital Signs Vital Sign - Last Date Time Temp Pulse Resp B/P Pulse Ox O2 Delivery O2 Flow Rate FiO2 04/21/16 19:45 37.0 55 18 111/59 97 Room Air 04/19/16 14:00 2.00 Intake and Output 04/20/16 04/20/16 04/21/16 Cumulative From/Thru 15:00 23:00 07:00 04/18/16 19:32 - 04/21/16 06:10 Intake Total 1682 ml 1985 ml 6873 ml Output Total 1070 ml 1300 ml 4370 ml Balance 612 ml 685 ml 2503 ml Intake Oral 460 ml 840 ml 1300 ml IV Total 1222 ml 1145 ml 5573 ml Output Urine Total 570 ml 450 ml 2320 ml Gastric Drainage Total 500 ml 850 ml 2050 ml # Bowel Movements 0 0 0 Exam General: Alert, Oriented X3, NAD Head: Normocephalic, atraumatic Eyes: BRANT, EOMI, no scleral Icterus Chest: clear to auscultation B/L, no wheezing rales or rhonchi Heart: Regular rate and rhythm. Normal S1, S2, no murmurs noted Abdomen: soft, mild tenderness to palpation. Bowel sounds are normoactive. No guarding or rebound. Extremities: no cyanosis, clubbing or edema. IVs and Medications Medications Reviewed: Medications were reviewed in detail Lab and Diagnostics Result Diagram: 04/21/1671804/21/16718 X-Rays, CTs and MRIs CT Abd / Pelvis Interpretation IMPRESSION: 1. Gastric volvulus as described above. The extent of distal gastric dilatation is increased when compared with the prior study dated 09/07/15. 2. Findings most consistent with small bowel obstruction with transition in the midportion of the jejunum located in the left lower quadrant as described above. Although no focal mass lesion is visualized to explain obstruction, diffuse mucosal thickening is present within the transition point. This may be associated with neoplasm, ischemia, or inflammation. These findings were discussed with Dr. Del Real, resident physician, at 9:20 PM on 04/18/16. 3. Increase in the size of the mesenteric mass when compared with the study dated 09/07/15. Assessment & Plan Patient is a 85 year old female presenting with cramping abdominal pain and hematemesis that was found to have increased size of a gastric volvulus and small bowel obstruction. Hematemesis - Pt has had a one day of hematemesis with approximately 6 episodes as a whole - Pts hemoglobin 12.9 on admission. Slightly down, now stable. 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 Tolerating well today Asthma - will c/w albuterol and Advair for now Hypertension - Hydralazine when necessary - Continue Cozaar CODE STATUS: Full code DVT prophylaxis: Contraindicated with hematemesis Disposition: Pt is from assisted living in [place] and will return when hosp course is over. Likely discharge tomorrow with continued improvement VTE Prophylaxis: SCDs VTE Mechanical Devices: Intermittant Pneumatic CD Resuscitation Status: CPR: Attempt Resuscitation Rual Lemus DO Apr 21, 2016 20:11
[2016-04-22] MEDS: 0.9% Sodium Chloride 1,000 ML IV SCH (02:51)
--- NOTE | 2016-04-22 03:34 | NUR ---
Advanced Diet patient couldn't sleep "slept too much during day" felt hungry gave some tomato soup tolerated well
[2016-04-22 03:58] VITALS: BP 136/63; PULSE 83; RESP 18; O2SAT 93
[2016-04-22] MEDS: Pantoprazole 4 mg/mL 10 mL Inj IVPUSH SCH (07:42)
[2016-04-22 08:00] VITALS: BP 133/69; PULSE 74; RESP 20; O2SAT 94
[2016-04-22] MEDS: Fluticasone-Salmererol 250-50 Inhaler INHALATION SCH (08:01)
[2016-04-22 08:32] LABS: Mean Corpuscular Hemoglobin 29.8 pg (27.0-35.0); Mean Corpuscular Volume 92.6 fL (81-100)
[2016-04-22 09:40] LABS: Mean Corpuscular Hemoglobin 28.8 pg (27.0-35.0); Mean Corpuscular Volume 92.6 fL (81-100)
[2016-04-22 09:56] LABS: INR 1.03 ratio
[2016-04-22 10:29] LABS: Magnesium 1.2 mg/dL (1.6-2.6)
--- NOTE | 2016-04-22 10:30 | NUR ---
Lab Received call from Lab patient Magnesium level of 1.2, Dr. Peñaloza made aware during rounds at 10:30.
[2016-04-22] MEDS ORDERED: KCl 40 mEq/D5W 500 mL 40 MEQ in IV Premix 500 EACH IV ONE (11:05)
[2016-04-22] MEDS ORDERED: Potassium Chloride 20 mEq SR Tablet PO ONE (11:05)
[2016-04-22] MEDS ORDERED: Magnesium Sulf 2 Gm/50mL Water 2 GM in IV Premix 1 EACH IV ONE (11:05)
[2016-04-22] MEDS ORDERED: Magnesium Sulf 4 Gm/100 mL H2O 4 GM in IV Premix 1 EACH IV ONE (11:05)
--- NOTE | 2016-04-22 11:12 | NUR ---
Social Work Discharge Note: Data & Assessment: Social Spoke with Diane Johnson and requested a bedside assessment because the patient was ready for discharge. Diane stated that normally a bedside assessment is needed, but they told the son that they would accept the patient back without an assessment. railroad yard worker spoke with patient's son, Rory Javed [phone], and notified him that they patient was cleared for discharge by the physician. Patient's son stated that he would pick the patient up and transfer her to [place]. SWfaxed patient's clinical to [place] [phone]. [phone]. SW notified patient's nurse. Advertising Photographer will continue to follow patient. Plan: Patient will discharge to [facility]. Patient son will transport patient to [place]. SW will continue to follow. Apple Horta, HOWARD, ACKourtney
[2016-04-22] MEDS ORDERED: Magnesium Sulf 2 Gm/50 mL D5W IV ONE (11:40)
[2016-04-22 11:50] VITALS: BP 129/50; PULSE 97; RESP 20
--- NOTE | 2016-04-22 12:16 | PCM.DIMED ---
Discharge Instructions Date of Service Apr 22, 2016 Dates of Hospitalization Apr 18, 2016 at 22:11 Discharge Diagnosis Discharge Diagnosis # Acute small bowel obstruction. present on admission. Resolved # Suspected acute Hematemesis. present on admission. Resolved. - red blood cell count stable. 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 # History of Asthma. stable # History of Hypertension. stable. # Paraesophageal hernia. 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 Zenaida Mathur # Acute hypokalemia. Replaced # Acute hypomagnesemia. Replaced Diet Heart Healthy Activity No restrictions Call your provider Fever or Chills, Shortness of breath, Bleeding, Chest pain, Vomitting, Excessive diarrhea Patient Instructions Seek immediate medical attention if any new or worsening signs or symptoms occur. Follow-up plan 1. Followup with primary care provider or your agricultural equipment sales manager in 5-10 days Follow-up Provider: Fay Botello MD Provider: Osorio Beckham MD, Masoud Apr 22, 2016 12:16
--- NOTE | 2016-04-22 14:30 | NUR ---
Discharge Patient discharge back home to [facility]. quill worker contacted facility this am for patients return. No need to re assess patient, son made arrangement to pick pack worker and take her to [facility]. Notes and instructions given and well understood by patient. All belongings given. Denies any discomfort at the time of discharge.
--- NOTE | 2016-04-22 16:22 | PROG NOTE ---
[address] [address] PROGRESS NOTE PATIENT: DARNELL ARTIS I : 1930 MR#: [id number] ADMIT: 04/18/2016 JOB ID: [id number] DATE: 04/22/2016 SUBJECTIVE: The patient tolerated her NG out, soft. Full liquid diet. She tells me she is passing gas, had a couple bowel movements and her abdominal pain is resolved. Her abdominal exam is benign. IMPRESSION/PLAN: Resolved small-bowel obstruction. She can be discharged home. She can follow up p.r.n. with Dr. Mathur.
--- NOTE | 2016-04-22 19:07 | PCM.DC.MED ---
Discharge Summary Date of Service Apr 22, 2016 Dates of Hospitalization Date of Hospital Admission Apr 18, 2016 at 22:11 Date of Discharge: Apr 22, 2016 Providers: Admitting Physician: Stevie Velasquez MD Primary Care Physician: Fay Botello MD Attending Physician: Stevie Velasquez MD Diagnosis at Time of Discharge Diagnosis at Time of Discharge # Acute small bowel obstruction. present on admission. Resolved # Suspected acute Hematemesis. present on admission. Resolved. - red blood cell count stable. 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 # History of Asthma. stable # History of Hypertension. stable. # Paraesophageal hernia. 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 Zenaida Mathur # Acute hypokalemia. Replaced # Acute hypomagnesemia. Replaced Procedures XRay, CTs & MRIs Date of Service: 04/18/16 192 PROCEDURE: CT ABDOMEN AND PELVIS WITH CONTRAST ([id number]) IMPRESSION: 1. Gastric volvulus as described above. The extent of distal gastric dilatation is increased when compared with the prior study dated 09/07/15. 2. Findings most consistent with small bowel obstruction with transition in the midportion of the jejunum located in the left lower quadrant as described above. Although no focal mass lesion is visualized to explain obstruction, diffuse mucosal thickening is present within the transition point. This may be associated with neoplasm, ischemia, or inflammation. These findings were discussed with Dr. Del Real, resident physician, at 9:20 PM on 04/18/16. 3. Increase in the size of the mesenteric mass when compared with the study dated 09/07/15. Dictated by: Alice Washington M.D. on 04/18/2016 at 21:23 Approved by: Alice Washington M.D. on 04/18/2016 at 21:23 Date of Service: 04/21/16 0500 PROCEDURE: X-RAY ABDOMEN WITH ERECT AND/OR DECUBITUS VIEWS ([id number]) IMPRESSION: Nonspecific bowel gas pattern. As clinically warranted, continued surveillance with abdominal series radiographs could be performed. Grossly unchanged enteric tube. Large hiatal hernia. Dictated by: Musa Wharton M.D. on 04/21/2016 at 9:02 Approved by: Musa Wharton M.D. on 04/21/2016 at 9:02 Brief History As noted in H&P by Dr. Velasquez: Patient is a 85 year old female with a pmh of asthma and hypertension that is presenting with 1-2 day history of abdominal pain and hematemesis. Patient reports that she was in her usual state of health when she suddenly developed crampy abdominal pain that occured without any inciting incident. Patient immediately felt nauseated and began to vomit a few time. At first it was vomiting food material, and eventually it became darker and it resembled coffee grounds as per the patient. Patient then realized that something was amiss and called ems. Patient then proceeded to have 2 more vomiting episodes while EMS was there. EMS recognized this as coffee ground emesis and immediately brought her to the ED. Patient while in the ED was treated with anti emetics and a has been not had any more episodes of vomiting. Patient is otherwise asymptomatic and has minimal pain as compared to before. Hospital Course # Hematemesis - Pt has had a one day of hematemesis with approximately 6 episodes as a whole - Pts hemoglobin 12.9 on admission. Slightly down, now stable. - no further episode of bleeding noted - h/h remaining stable # Acute Small bowel obstruction. poa. Clinically resolved. 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 Tolerating well today # Asthma. stable - will c/w albuterol and Advair for now # Hypertension. stable by day of d/c lungs CTA bilat. abdomen soft, nt, nd, +bs Exam Vital Signs (Last) Date Time Temp Pulse Resp B/P Pulse Ox O2 Delivery O2 Flow Rate FiO2 04/22/16 11:50 36.9 97 20 129/50 Room Air 04/22/16 08:00 94 04/19/16 14:00 2.00 Test 04/18/16 19:54 04/18/16 22:37 04/19/16 08:50 04/22/16 09:20 Lipase 13U/L (13-60) Hold [place] Top Tube Received (Received) Urine Color Straw (YELLOW) Urine Appearance Clear (CLEAR,HAZY) Urine pH 7.0 (5.0-8.0) Urine Specific [place] 1.010 (1.003-1.035) Urine Protein Negativemg/dL (NEG,TRACE) Urine Glucose (UA) Negativemg/dL (NEGATIVE) Urine Ketones Negativemg/dL (NEGATIVE) Urine Occult Blood Negative (NEGATIVE) Urine Nitrite Negative (NEGATIVE) Urine Bilirubin Negative (NEGATIVE) Urine Urobilinogen Normalmg/dL (NORMAL) Urine Leukocyte Esterase Negative (NEGATIVE) Urine RBC 0-2/hpf (0-2) Urine WBC 0-5/hpf (0-5) Urine Epithelial Cells Occasional/hpf (NONE-MOD) Urine Crystals None seen (NONE SEEN) Urine Bacteria None/hpf (NONE-FEW) Urine Hyaline Casts None/lpf (NONE) Urine Granular Casts None seen (NONE SEEN) Urine Waxy Casts None seen (NONE SEEN) Urine Red Blood Cell Casts None seen (NONE SEEN) Urine White Blood Cell Casts None seen (NONE SEEN) Urine Mucus None seen (None Seen) Urine Trichomonas None seen (NONE SEEN) Urine Yeast None (NONE SEEN) Urine Culture Reflexed Not indicated Neutrophils (%) (Auto) 71.9% (40-74) Lymphocytes (%) (Auto) 20.9% (14-46) Monocytes (%) (Auto) 6.1% (4-12) Eosinophils (%) (Auto) 0.6% (0-5) Basophils (%) (Auto) 0.3% (0-3) Total Bilirubin 0.3mg/dL (0.0-1.2) Aspartate Amino Transf (AST/SGOT) 17U/L (0-50) Alanine Aminotransferase (ALT/SGPT) 11U/L (0-32) Alkaline Phosphatase 53U/L (25-165) Total Protein 5.6g/dL (6.4-8.4) Albumin 3.3g/dL (3.4-5.0) White Blood Count 7.3th/mm3 (3.8-10.1) Red Blood Count 3.37mil/mm3 (3.90-5.20) Hemoglobin 9.7g/dL (12.0-15.6) Hematocrit 31.2% (35.0-46.0) Mean Corpuscular Volume 92.6fL (81-100) Mean Corpuscular Hemoglobin 28.8pg (27.0-35.0) Mean Corpuscular Hemoglobin Concent 31.1% (32.0-37.0) Red Cell Distribution Width 15.2% (12.3-15.4) Platelet Count 215bil/L (150-400) Prothrombin Time 11.0sec (8.1-12.5) Prothromb Time International Ratio 1.03ratio Activated Partial Thromboplast Time 26.4sec (22.8-33.0) Sodium Level 144mEq/L (134-144) Potassium Level 3.0mEq/L (3.5-5.2) Chloride Level 109mEq/L (97-108) Carbon Dioxide Level 21mmol/L (18-29) Blood Urea Nitrogen 9mg/dL (8-27) Creatinine 0.74mg/dL (0.57-1.00) Estimat Glomerular Filtration Rate 106mL/min (>59) Glucose Level 146mg/dL (60-99) Calcium Level 7.1mg/dL (8.5-10.1) Magnesium Level 1.2mg/dL (1.6-2.6) Discharge Medications Discharge Medications Atorvastatin (Lipitor) 20 Mg Tablet 20 MG PO DAILY (Reported) Cholecalciferol (Vitamin D3) (Vitamin D3) 2,000 Unit Capsule 1,000 UNIT PO DAILY (Reported) Fluticasone/Salmeterol (Advair 250-50 Diskus) 60 Puff/Inh Disk 1 PUFF IH BID ( Reported) Furosemide (Furosemide) 40 Mg Tablet 40 MG PO DAILYWM (Reported) Furosemide (Furosemide) 20 Mg Tab 20 MG PO at lunch (Reported) Losartan Potassium (Losartan Potassium) 100 Mg Tablet 150 MG PO DAILY (Reported ) Multivitamin/Iron/Folic Acid (Cerovite Advanced Form Tab) 1 Each Tablet 1 EACH PO DAILY (Reported) [place]-3/Dha/Epa/Fish Oil (Fish Oil 1,000 mg Softgel) 1 Each Capsule 1 EACH PO BID (Reported) Omeprazole (Omeprazole) 40 Mg Capsule.dr 40 MG PO DAILY (Reported) Polyethylene Glycol 3350 (Miralax) 17 Gm Powd.pack 17 GM PO DAILY (Reported) Potassium Chloride (Potassium Chloride) 10 Meq Capsule.er 10 MEQ PO DAILY ( Reported) TAKE WITH FOOD Vit C/Vit E/Lutein/Min/[place]-3 (Ocuvite Softgel) 1 Each Capsule 1 EACH PO DAILY (Reported) As needed Acetaminophen (Acetaminophen) 325 Mg Tablet 1-2 TABLET PO TID PRN PRN For Pain ( Reported) Albuterol Sulfate (Ventolin HFA Inhaler) 200 Puff/18 Gm Inhaler 2 PUFF INH every 4 to 6 hours PRN PRN For Wheezing (Reported) Calcium Carbonate (Tums) 500 Mg Tab.chew 1,000 MG PO BID PRN PRN For Dyspepsia or Heartburn (Reported) Guaifenesin/Codeine Phosphate (Guaifenesin-Codeine Syrup) 10 Ml Liquid 10 ML PO Q4H PRN PRN For Pain (Reported) Oxycodone (Roxicodone) 5 Mg Tablet 0.5-2 TABLET PO every 3 to 8 hours PRN PRN For Pain (Reported) Followup Plan Disposition: Assisted living Follow-up plan 1. Followup with primary care provider or your pricing associate in 5-10 days Discharge Diet: Heart Healthy Discharge Activity: No restrictions Patient Instructions Seek immediate medical attention if any new or worsening signs or symptoms occur. Follow-up Provider: Fay Botello MD Provider: Osorio Beckham MD Time spent 30 min copies to: Osorio Beckham MD; Fay Botello MD, [place] Apr 22, 2016 19:07
[2016-10-01] MEDS ORDERED: ASPI-973 PO (09:13)
== END 2016-04-22 14:15 | disposition home or self-care (01) | DRG 389 ==
LOC: SED 19:12 → EDBD 19:12 → MOC 22:11
PROVIDERS: ADMIT Internal Medicine; ATTEND Internal Medicine
DX: K56.60 Unspecified intestinal obstruction (principal); K92.0 Hematemesis; I10 Essential (primary) hypertension; K31.89 Other diseases of stomach and duodenum; J45.909 Unspecified asthma, uncomplicated; K44.9 Diaphragmatic hernia without obstruction or gangrene; D50.0 Iron deficiency anemia secondary to blood loss (chronic); E83.42 Hypomagnesemia; E87.6 Hypokalemia; Z87.891 Personal history of nicotine dependence; Z79.82 Long term (current) use of aspirin